=== PATIENT | male | born 1950 | race Caucasian/White ===

== ENCOUNTER → 2016-08-16 | Outpatient (CLI) | payer MEDICARE, OTHER ==
[~2016-08-16] MED LIST: BENI20TA25 PO; CARV12.52 PO; CO Q50CA PO; DICL50TA3 PO; FIBE0.523 PO; HYDR-3533 PO; HYDR25TA35 PO; MULT1CAP PO; MULT1TAB46 PO; NABU500T PO; ROSU20 PO; SAW160TA PO
== END ==
LOC: PLAB 09:34
DX: M35.3 Polymyalgia rheumatica (principal)
CPT/HCPCS: 36415; 85652; 86141

== ENCOUNTER 2017-05-19 18:54 | Emergency (ER) | payer OTHER, MEDICARE ==
[2017-05-19 18:58] VITALS: BP 180/86; PULSE 128; RESP 20; TEMP 98; O2SAT 95
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
[2017-05-19] MEDS ORDERED: KETOROLAC TROMETHAMINE 60 MG/2 ML (IM) VIAL IM ONE (21:15)
== END 2017-05-19 21:20 | disposition home or self-care (01) ==
LOC: PHEFT 18:54
DX: M54.2 Cervicalgia (principal); R51 Headache; V89.2XXA Person injured in unspecified motor-vehicle accident, traffic, initial encounter
CPT/HCPCS: 70450; 72125; 96372; 99285; J1885